=== PATIENT | female | born 1965 | race Caucasian/White ===

== ENCOUNTER 2022-03-22 09:04 | Day surgery (SDC) | payer MEDICARE, SELFPAY ==
[2022-03-22] VITALS (15 sets, daily range): BP systolic 130–172; BP diastolic 82–104; PULSE 80–120; RESP 14–31; TEMP 36.2–36.6; O2SAT 90–98; BMI 30.2
--- NOTE | 2022-03-22 09:13 | W.PM.OPSUD ---
Surgery/Procedure H&P Update DATE OF PROCEDURE: March 22, 2022 DATE H&P PERFORMED: 02/27/22 PLANNED PROCEDURE: Operation Date: 03/22/22 10:45 Proposed Procedures p lap poss open recurrent incisional hernia 2 mesh 21928,K43.2(Not Applicable) - Mg Solis DO
[2022-03-22 10:15] LABS: Glucose Point of Care 67 mg/dL (70-110)
--- NOTE | 2022-03-22 10:42 | ANES.PREANE2 ---
Pre-Anesthetic Assessment Height/Weight: Height 1.57 m Temp Pulse Resp BP Pulse Ox O2 Del Method 97.3 F L 80 16 154/104 98 03/22/22 09:40 03/22/22 09:40 03/22/22 09:40 03/22/22 09:40 03/22/22 09:40 03/22/22 09:49 Preop Diagnosis: recurrent incisional hernia Operation Date: 03/22/22 10:45 Proposed Procedures p lap poss open recurrent incisional hernia 2 mesh 27312,K43.2(Not Applicable) - Mg Solis DO Familial anesthetic complications: none Was Beta Mehreen taken within 24 hours: Yes Was Clonidine taken within 24 hours: N/A Social Tobacco and No alcohol Exam alert, oriented x 3 and regular rate & rhythm Airway Submandibular: within normal limits Cervical ROM: within normal limits Mallampati: Class II Dentition: false Pulmonary Chronic Obstructive Pulmonary Disease Metabolic Diabetes Mellitus, Hyperlipidemia and Morbid Obesity Neuropsych Anxiety and Depression Anesthetic Plan ASA status: 3 Anesthesia: General Medications/Allergies Home Medications Medication Instructions Recorded Confirmed Last Taken Type atorvastatin 10 mg tablet 10 mg PO DAILY 02/26/22 02/26/22 Unknown History carisoprodol 350 mg tablet 350 mg PO TID 02/26/22 02/26/22 Unknown History diazepam 5 mg tablet 5 mg PO BID PRN 02/26/22 02/26/22 Unknown History estradiol 1 mg tablet 1 mg PO DAILY 02/26/22 02/26/22 Unknown History furosemide 40 mg tablet 40 mg PO DAILY 02/26/22 02/26/22 Unknown History hydroxyzine HCl 25 mg tablet 25 mg PO TID PRN 02/26/22 02/26/22 Unknown History insulin detemir U-100 100 unit/mL 30 unit SUBCUT DAILY 02/26/22 02/26/22 Unknown History subcutaneous solution (Levemir U-100 Insulin) losartan 100 mg tablet 100 mg PO DAILY 02/26/22 02/26/22 Unknown History metformin 1,000 mg tablet 1,000 mg PO DAILY 02/26/22 02/26/22 Unknown History metoprolol tartrate 50 mg tablet 50 mg PO BID 02/26/22 02/26/22 Unknown History potassium chloride 10 mEq 10 meq PO DAILY 02/26/22 02/26/22 Unknown History capsule,extended release trazodone 100 mg tablet 100 mg PO DAILY 02/26/22 02/26/22 Unknown History venlafaxine 150 mg 150 mg PO DAILY 02/26/22 02/26/22 Unknown History capsule,extended release 24 hr lipase 3,000-protease PO 02/27/22 02/27/22 Unknown History 9,500-amylase 15,000 unit capsule, delayed rel (Creon) Allergies Allergy/AdvReac Type Severity Reaction Status Date / Time morphine Allergy ADR-Itching Verified 02/26/22 16:31 sulfamethoxazole Allergy ADR-Itching Verified 02/26/22 16:31 [From Bactrim] trimethoprim [From Bactrim] Allergy ADR-Itching Verified 02/26/22 16:31 [facility] Anesthesia Medical History Basal cell carcinoma Diabetes Emphysema lung Kidney disease Liver disease Neoplasm, adrenal gland Surgical History History of breast biopsy History of cholecystectomy History of hysterectomy History of incisional hernia repair History of left hip replacement Social History Smoking and tobacco status: current every day smoker Data Anesthesia Cardiac Studies: No Data to Display
[2022-03-22] MEDS: sodium chloride 0.9% 1,000 ML 30 ML IV (10:44)
[2022-03-22] MEDS: dextrose 50% syringe 50 mL 25 ML IVP (10:45)
[2022-03-22 11:18] LABS: Glucose Point of Care 88 mg/dL (70-110)
[2022-03-22 11:32] LABS: Anion Gap 15.9 (5-19); Blood Urea Nitrogen 28 mg/dL (6-20); Calcium 9.8 mg/dL (8.5-10.5); Carbon Dioxide 32 mmol/L (22-29); Chloride 91 mmol/L (98-107); Glomerular Filtration Rate 33.3 mL/min (90-130); Glucose 51 mg/dL (65-115); Osmolality Calculated 281 mOsm/kg (285-295); Potassium 4.9 mmol/L (3.5-5.1); Sodium 134 mmol/L (136-145)
[2022-03-22] MEDS: ceFAZolin 2,000 MG in sodium chloride 0.9% (plus) 50 ML 100 MG IV (11:39)
--- NOTE | 2022-03-22 12:59 | PM.OP ---
Operative Report Date of procedure: March 22, 2022 Pre-op diagnosis: Preop Diagnosis recurrent incisional hernia Post-op diagnosis: same Procedure done: Laparoscopic repair of recurrent incisional hernia with mesh Implants: 6 inch round mesh ventral light Specimens removed/disposition: Hernia sac Surgeon: Dr. Mg Solis DO Anesthesia: General Estimated blood loss (mL): 10 Complications: None apparent Brief History: This is a very pleasant 56-year-old female with a recurrent incisional hernia. Laparoscopic repair with mesh was indicated. Risks and benefits were explained and documented. Procedure: Patient was wheeled into the operative room and placed on the OR table in a supine position. Abdomen was inspected prepped and draped in usual sterile fashion. Time-out was performed and all present were in agreement. A 15 blade scalp was used to make a 5 millimeter incision left upper quadrant. A Veress needle was placed into the incision and intra-abdominal insufflation was brought to 15 millimeters of mercury. A 12 millimeter trocar was placed into the left lower quadrant. There was significant omental fat in a recurrent incisional hernia at the umbilicus. The energy but device was then used to cut out the hernia sac. A 6 inch mesh was placed into the abdomen and brought up through the umbilicus. The mesh was then tacked in place in a double crown fashion. The hernia sac was then removed from the abdomen via the left lower quadrant. The skeleton was removed from the mesh. The left lower quadrant port site was closed with an 0 Vicryl suture in a [place] in a [id number] fashion. Incisions were closed with 4 O Vicryl in a subcuticular interrupted fashion. Skin glue was applied. Patient tolerated the procedure well.
[2022-03-22] MEDS: fentaNYL 50 mcg/mL INJ 2mL 100 MCG IVP (13:05)
[2022-03-22] MEDS: ondansetron 2 mg/ML SDV 2 mL 4 MG IVP (13:05)
[2022-03-22] MEDS: fentaNYL 50 mcg/mL INJ 2mL IVP (13:29)
[2022-03-22 14:00] LABS: Glucose Point of Care 90 mg/dL (70-110)
[2022-03-22] MEDS: HYDROcodone-acetaminophen 7.5-325 mg Tablet 1 TAB PO (14:09)
--- NOTE | 2022-03-22 16:50 | ANE.PACU2 ---
Inpatient post-anesthesia follow up: Airway intact: Yes Vital signs: Temperature 97.3 F Pulse Rate 96 Respiratory Rate 18 Blood Pressure 155/85 Pulse Oximetry 96 Oxygen Delivery Me thod Room Air Oxygen Flow Rate Fraction of Inspir ed Oxygen Hydration adequate: Yes Nausea and vomiting: No Pain level: 2 Mental status: Baseline
== END 2022-03-22 14:45 | disposition home or self-care (01) ==
PROVIDERS: PCP Internal Medicine; Visit Provider Surgery
PROC: 0WQF4ZZ Repair Abdominal Wall, Percutaneous Endoscopic Approach (ICD-10-PCS; CPT 49656; principal; 2022-03-22 10:35)
DX: K43.2 Incisional hernia without obstruction or gangrene (principal); E11.9 Type 2 diabetes mellitus without complications; N28.9 Disorder of kidney and ureter, unspecified; E78.5 Hyperlipidemia, unspecified; J43.9 Emphysema, unspecified; E66.01 Morbid (severe) obesity due to excess calories; Z68.30 Body mass index [BMI] 30.0-30.9, adult; F17.200 Nicotine dependence, unspecified, uncomplicated; Z79.4 Long term (current) use of insulin; Z79.84 Long term (current) use of oral hypoglycemic drugs; Z88.2 Allergy status to sulfonamides; Z88.5 Allergy status to narcotic agent
CPT/HCPCS: 49656; 36415; 36416; 80048; 82962; 88302; J1100; J1170; J2405; J2704; J2710; J3010; J3490; J3535; J7030

== ENCOUNTER 2022-05-16 09:08 | Day surgery (SDC) | payer MEDICARE, SELFPAY ==
[2022-05-16] VITALS (7 sets, daily range): BP systolic 104–182; BP diastolic 58–111; PULSE 67–83; RESP 16–18; TEMP 36.2–36.5; O2SAT 95–100
[2022-05-16 09:44] LABS: Glucose Point of Care 224 mg/dL (70-110)
[2022-05-16] MEDS: sodium chloride 0.9% 1,000 ML 30 ML IV (09:44)
--- NOTE | 2022-05-16 10:14 | PM.HP ---
Providers/Chief Complaint Primary Care Provider: Thony Maldonado MD Chief Complaint: R11.2, R10.9, Z12.11 History of Present Illness Moraima Norris is a 56 year old female here for EGD and colonoscopy Medications/Allergies Home Medications Medication Instructions Recorded Confirmed Last Taken Type diazepam 5 mg tablet 5 mg PO BID PRN Anxiety 02/26/22 05/16/22 05/15/22 History estradiol 1 mg tablet 1 mg PO DAILY 02/26/22 05/16/22 05/15/22 History furosemide 40 mg tablet 40 mg PO DAILY 02/26/22 05/16/22 05/15/22 History insulin detemir U-100 100 unit/mL 30 unit SUBCUT DAILY 02/26/22 05/16/22 05/15/22 History subcutaneous solution (Levemir U-100 Insulin) losartan 100 mg tablet 100 mg PO DAILY 02/26/22 05/16/22 05/15/22 History metformin 1,000 mg tablet 1,000 mg PO DAILY 02/26/22 05/16/22 05/15/22 History metoprolol tartrate 50 mg tablet 50 mg PO BID 02/26/22 05/16/22 05/16/22 History potassium chloride 10 mEq 10 meq PO DAILY 02/26/22 05/16/22 05/15/22 History capsule,extended release venlafaxine 150 mg 150 mg PO DAILY 02/26/22 05/16/22 05/15/22 History capsule,extended release 24 hr aspirin 325 mg tablet 325 mg PO DAILY PRN Pain 05/14/22 05/16/22 05/11/22 History melatonin 1 mg/mL oral liquid 4 mg PO DAILY PRN Sleep 05/14/22 05/16/22 05/15/22 History promethazine 25 mg tablet 25 mg PO Q6H PRN Nausea 05/14/22 05/16/22 05/15/22 History clonidine HCl 0.1 mg tablet 0.1 mg PO Q8H PRN high blood 05/16/22 05/16/22 Unknown History pressure Allergies Allergy/AdvReac Type Severity Reaction Status Date / Time morphine Allergy ADR-Itching Verified 05/16/22 09:37 sulfamethoxazole Allergy ADR-Itching Verified 05/16/22 09:37 [From Bactrim] trimethoprim [From Bactrim] Allergy ADR-Itching Verified 05/16/22 09:37 PFSH Acute PFSH: Medical History Basal cell carcinoma Diabetes Emphysema lung Kidney disease Liver disease Neoplasm, adrenal gland Surgical History History of breast biopsy History of cholecystectomy History of hysterectomy History of incisional hernia repair History of left hip replacement Social History Smoking and tobacco status: current every day smoker Vitals/I&O/Wt Last Vital Signs Temp 97.7 F 05/16/22 09:38 Pulse 69 05/16/22 09:38 Resp 18 05/16/22 09:38 BP 182/111 05/16/22 09:38 Pulse Ox 99 05/16/22 09:38 O2 Del Method 05/16/22 09:38 Weight last 48 hrs Weight 165 lb A&P Assessment and plan (1) Melena: Plan EGD and colonoscopy Attestations Medical Necessity Statement*: Home Coding Level of Care Code Acute Senior Restaurant Manager for g Fwd Diagnoses Melena K92.1
--- NOTE | 2022-05-16 10:22 | ANES.PREANE2 ---
Pre-Anesthetic Assessment Height/Weight: Height 1.57 m Weight 74.843 kg Temp Pulse Resp BP Pulse Ox O2 Del Method 97.7 F 69 18 182/111 99 05/16/22 09:38 05/16/22 09:38 05/16/22 09:38 05/16/22 09:38 05/16/22 09:38 05/16/22 09:38 Preop Diagnosis: Screening Operation Date: 05/16/22 10:30 Proposed Procedures p EGD and colonoscopy 50279,33307,R11.2,R10.9,Z12.11(Not Applicable) - Mg Solis DO s Colonoscopy(Not Applicable) - Mg Solis DO Familial anesthetic complications: None Was Beta Mehreen taken within 24 hours: Yes Was Clonidine taken within 24 hours: Yes Last intake: Intake Last Liquid Date 05/15/22 Last Liquid Time 23:30 Last Solid Date 05/14/22 Social Alcohol (Social) and Tobacco 1.5-2 pack(s) per day 40 pack years Exam alert, oriented x 3, clear to auscultation bilaterally and regular rate & rhythm Airway Submandibular: within normal limits Cervical ROM: within normal limits Mallampati: Class II Dentition: false History/ROS No significant history except as noted and No significant complaints Pulmonary Chronic Obstructive Pulmonary Disease (Emphysema) and Cough CV/HEM Hypertension Chronic Renal Insufficiency (Stage 3 CKD) Hepatic Cirrhosis GI None reported Metabolic Diabetes Mellitus Musc/skel Fibromyalgia, Lower Back Pain and Osteoarthritis/DJD Neuropsych Anxiety, Depression, Neuropathy and Seizure (7 years ago. Was on xanax and stopped.) Anesthetic Plan ASA status: 3 Anesthesia: Anesthesia Evaluation, General and MAC Risk of > 500 ml blood loss (7ml/kg in children): No Medications/Allergies Home Medications Medication Instructions Recorded Confirmed Last Taken Type diazepam 5 mg tablet 5 mg PO BID PRN Anxiety 02/26/22 05/16/22 05/15/22 History estradiol 1 mg tablet 1 mg PO DAILY 02/26/22 05/16/22 05/15/22 History furosemide 40 mg tablet 40 mg PO DAILY 02/26/22 05/16/22 05/15/22 History insulin detemir U-100 100 unit/mL 30 unit SUBCUT DAILY 02/26/22 05/16/22 05/15/22 History subcutaneous solution (Levemir U-100 Insulin) losartan 100 mg tablet 100 mg PO DAILY 02/26/22 05/16/22 05/15/22 History metformin 1,000 mg tablet 1,000 mg PO DAILY 02/26/22 05/16/22 05/15/22 History metoprolol tartrate 50 mg tablet 50 mg PO BID 02/26/22 05/16/22 05/16/22 History potassium chloride 10 mEq 10 meq PO DAILY 02/26/22 05/16/22 05/15/22 History capsule,extended release venlafaxine 150 mg 150 mg PO DAILY 02/26/22 05/16/22 05/15/22 History capsule,extended release 24 hr aspirin 325 mg tablet 325 mg PO DAILY PRN Pain 05/14/22 05/16/22 05/11/22 History melatonin 1 mg/mL oral liquid 4 mg PO DAILY PRN Sleep 05/14/22 05/16/22 05/15/22 History promethazine 25 mg tablet 25 mg PO Q6H PRN Nausea 05/14/22 05/16/22 05/15/22 History clonidine HCl 0.1 mg tablet 0.1 mg PO Q8H PRN high blood 05/16/22 05/16/22 Unknown History pressure Allergies Allergy/AdvReac Type Severity Reaction Status Date / Time morphine Allergy ADR-Itching Verified 05/16/22 09:37 sulfamethoxazole Allergy ADR-Itching Verified 05/16/22 09:37 [From Bactrim] trimethoprim [From Bactrim] Allergy ADR-Itching Verified 05/16/22 09:37 Current Medications Generic Name Dose Route Start Last Admin Trade Name Freq PRN Reason Stop Dose Admin Sodium Chloride 1,000 mls @ 30 mls/hr 05/16/22 09:30 05/16/22 09:44 Sodium Chloride 0.9% IV 05/17/22 09:29 30 mls/hr .Q24H ZOILA Administration PFSH Anesthesia Medical History Basal cell carcinoma Diabetes Emphysema lung Kidney disease Liver disease Neoplasm, adrenal gland Surgical History History of breast biopsy History of cholecystectomy History of hysterectomy History of incisional hernia repair History of left hip replacement Social History Smoking and tobacco status: current every day smoker Data Anesthesia Cardiac Studies: No Data to Display
--- NOTE | 2022-05-16 11:24 | PC.NURSE ---
dr fernandez at bedside. patient awake and alert, c/o abd pain, rates 6. dr fernandez gave verbal order for iv pain med.
[2022-05-16] MEDS: fentaNYL 50 mcg/mL INJ 2mL IVP (11:35)
--- NOTE | 2022-05-16 11:48 | PC.NURSE ---
patient states her pain is much better and she wants to leave to get a cigarette.
--- NOTE | 2022-05-16 12:02 | PC.NURSE ---
1155 patient very demanding. is insisting we let her go smoke. in radiology for a catscan, states he has cancer and has been in pain. i have tried x3 to contact her . informed charge nurse pema. patient walking out on her own. pema see called gi nurse auto repair shop manager. diana see here with patient. 1200 diana see walking with patient out of department. i was able to discuss discharge instructions. patient verbalized understanding and signed papers.
--- NOTE | 2022-05-16 13:52 | ANE.PACU2 ---
Inpatient post-anesthesia follow up: Airway intact: Yes Vital signs: Temperature 97.1 F Pulse Rate 67 Respiratory Rate 18 Blood Pressure 179/102 Pulse Oximetry 98 Oxygen Delivery Me thod Room Air Oxygen Flow Rate Fraction of Inspir ed Oxygen Hydration adequate: Yes Nausea and vomiting: No Pain level: 1 Mental status: Baseline
== END 2022-05-16 12:00 | disposition home or self-care (01) ==
PROVIDERS: PCP Internal Medicine; Visit Provider Surgery
PROC: 0DJ08ZZ Inspection of Upper Intestinal Tract, Via Natural or Artificial Opening Endoscopic (ICD-10-PCS; CPT 43235; principal; 2022-05-16 10:30)
PROC: 0DJD8ZZ Inspection of Lower Intestinal Tract, Via Natural or Artificial Opening Endoscopic (ICD-10-PCS; CPT 45378; 2022-05-16 10:30)
DX: K92.1 Melena (principal); K44.9 Diaphragmatic hernia without obstruction or gangrene; K25.9 Gastric ulcer, unspecified as acute or chronic, without hemorrhage or perforation; K29.80 Duodenitis without bleeding; K26.9 Duodenal ulcer, unspecified as acute or chronic, without hemorrhage or perforation; D12.5 Benign neoplasm of sigmoid colon; K29.50 Unspecified chronic gastritis without bleeding; K44.1 Diaphragmatic hernia with gangrene; B96.81 Helicobacter pylori [H. pylori] as the cause of diseases classified elsewhere; J43.8 Other emphysema; E11.22 Type 2 diabetes mellitus with diabetic chronic kidney disease; I12.9 Hypertensive chronic kidney disease with stage 1 through stage 4 chronic kidney disease, or unspecified chronic kidney disease; N18.30 Chronic kidney disease, stage 3 unspecified; M79.7 Fibromyalgia; M19.90 Unspecified osteoarthritis, unspecified site; E11.40 Type 2 diabetes mellitus with diabetic neuropathy, unspecified; Z79.4 Long term (current) use of insulin
CPT/HCPCS: 36416; 43239; 45385; 82962; 88305; J2704; J3010; J7030